=== PATIENT | male | born 1990 ===

== ENCOUNTER → 2021-01-10 | Day surgery (SDC) | payer OTHER ==
[~2021-01-10] MED LIST: AFRIN15 M1; AMOXICILLIN500 MG PO; ATARAX25 MG PO; IBUPROFEN600 MG PO; METRONIDAZOLE500 MG PO; PERCOCET 5-3251 EACH PO; PRILOSEC20 MG PO; PRINIVIL10 MG PO; PROMETHAZINE 2525 MG PO; TOPAMAX100 MG PO; TRAZODONE 100M100 MG PO; WELLBUTRIN XL150 MG PO; ZIPRASIDONE HCL40 MG PO
[2021-01-10 09:20] LABS: BASOPHIL 0.9 % (0-2); EOSINOPHIL 11.7 % (0-5); HCT 43.5 % (42.0-52.0); HGB 14.6 g/dl (13.2-18.0); LYMPHOCYTE 27.2 % (15-48); MCH 29.9 pg (25.0-31.0); MCHC 33.6 g/dL (32.0-36.0); MCV 89.1 fL (78.0-100.0); NRBC 0; PLT 241 K/uL (150-400); RBC 4.88 M/uL (4.70-6.00); RDW 14.4 % (11.5-14.0); WBC 5.4 K/uL (4.0-10.5)
== END | disposition home or self-care (01) ==
LOC: FAS 07:42
PROVIDERS: Oral & Maxillofacial Surgery
DX: K02.63 Dental caries on smooth surface penetrating into pulp (principal); K21.9 Gastro-esophageal reflux disease without esophagitis; I10 Essential (primary) hypertension; J45.909 Unspecified asthma, uncomplicated; E66.01 Morbid (severe) obesity due to excess calories; F41.9 Anxiety disorder, unspecified; F17.210 Nicotine dependence, cigarettes, uncomplicated; F31.9 Bipolar disorder, unspecified; F90.9 Attention-deficit hyperactivity disorder, unspecified type; M94.0 Chondrocostal junction syndrome [Tietze]; Z90.49 Acquired absence of other specified parts of digestive tract; Z91.048 Other nonmedicinal substance allergy status; Z20.822 Contact with and (suspected) exposure to COVID-19; Z68.39 Body mass index [BMI] 39.0-39.9, adult
CPT/HCPCS: 36415; 85025; 93005; J1100; J1885; J2250; J2405; J2704; J2710; J3010; J7120